=== PATIENT | female | born 1950 | race Caucasian/White ===

== ENCOUNTER 2020-05-27 07:00 | Outpatient (CLI) | payer MEDICARE, OTHER ==
--- NOTE | 2020-05-27 14:07 | XRAY Report ---
PROCEDURE: Hand 3 View LT INDICATIONS: SPRAIN OF METACARPOPHALANGEAL JOINT OF LEFT THUMB TECHNIQUE: 3 views of the hand(s) acquired. COMPARISON: None FINDINGS: Bones: No fractures or dislocations. No suspicious bony lesions. Soft tissues: No suspicious soft tissue calcifications. IMPRESSION: No acute fracture. No osseous lesion. If symptoms and/or clinical suspicion for pathology continue, f urther assessment with repeat plain films, or advanced imaging (e.g., CT, MRI, or bone scan) is recom mended for further assessment. Reviewed by: Brenna Gomez MD on 05/27/2020 2:06 PM PST Approved by: Brenna Gomez MD on 05/27/2020 2:06 PM PST Station ID: [id number]
== END 2020-05-27 23:59 | disposition home or self-care (01) ==
LOC: DI.S 07:00
PROVIDERS: ATTEND Emergency Medicine
DX: S63.642A Sprain of metacarpophalangeal joint of left thumb, initial encounter (principal)

== ENCOUNTER 2020-10-26 08:00 | Outpatient (CLI) | payer MEDICARE, OTHER | END 2020-10-26 23:59 | disposition home or self-care (01) | LOC: LAB.S 08:00 | PROVIDERS: ATTEND Physician Assistant Medical | DX: N39.0 Urinary tract infection, site not specified (principal) | CPT/HCPCS: 87086 ==

== ENCOUNTER 2020-12-07 08:00 | Outpatient (CLI) | payer MEDICARE, OTHER | END 2020-12-07 23:59 | disposition home or self-care (01) | LOC: LAB.S 08:00 | PROVIDERS: ATTEND Physician Assistant Medical | DX: R30.0 Dysuria (principal) | CPT/HCPCS: 87086; 87181 ==

== ENCOUNTER 2021-02-23 08:00 | Outpatient (CLI) | payer MEDICARE, OTHER | END 2021-02-23 23:59 | disposition home or self-care (01) | LOC: LAB.R 08:00 | PROVIDERS: ATTEND Physician Assistant Medical | DX: R30.0 Dysuria (principal) | CPT/HCPCS: 87086 ==

== ENCOUNTER 2021-03-12 08:19 | Outpatient (CLI) | payer MEDICARE, OTHER | END 2021-03-12 08:20 | disposition home or self-care (01) | LOC: LAB.S 08:19 | PROVIDERS: ATTEND Family Medicine | DX: Z00.00 Encounter for general adult medical examination without abnormal findings (principal); Z53.9 Procedure and treatment not carried out, unspecified reason | CPT/HCPCS: 36415; 80053; 80061; 83036; 83721; 84443; 85027 ==

== ENCOUNTER 2021-03-15 08:51 | Outpatient (CLI) | payer MEDICARE, OTHER ==
[2021-03-15 14:53] LABS: HCT - HEMATOCRIT 42.5 % (37.0-47.0); HGB - HEMOGLOBIN 13.6 g/dL (12.0-16.0); MEAN CORPUSCULAR HEMOGLOBIN 28.5 pg (27.0-31.0); MEAN CORPUSCULAR VOLUME 88.9 fL (81.0-99.0); RED BLOOD COUNT 4.78 10^6/uL (4.20-5.40); WHITE BLOOD COUNT 6.3 x10^3/uL (4.8-10.8)
[2021-03-15 15:14] LABS: ALBUMIN 4.2 g/dL (3.2-5.5); ALBUMIN/GLOBULIN RATIO 1.4 (1.0-2.2); ALKALINE PHOSPHATASE 77 IU/L (42-121); ALT ALANINE AMINOTRANSFERASE 18 IU/L (10-60); AST ASPARTATE AMINOTRANSFERASE 20 IU/L (10-42); BUN - BLOOD UREA NITROGEN 14 mg/dL (6-20); CALCIUM 9.1 mg/dL (8.5-10.3); CARBON DIOXIDE - CO2 25 mmol/L (21-32); CHLORIDE 103 mmol/L (101-111); CHOL/HDL RATIO 4.3 (<4.4); CHOLESTEROL 249 mg/dL; CREATININE 0.8 mg/dL (0.4-1.0); GFR - MDRD 71 (>89); GLUCOSE 109 mg/dL (70-100); HDL CHOLESTEROL 58 mg/dL; LDL CHOLESTEROL,CALCULATED 124 mg/dL; LDL/HDL RATIO 2.1 (<4.4); POTASSIUM 4.3 mmol/L (3.5-5.0); SODIUM 138 mmol/L (135-145); TOTAL PROTEIN 7.1 g/dL (6.7-8.2); TRIGLYCERIDES 333 mg/dL; VLDL CHOLESTEROL 67 mg/dL
[2021-03-15 15:26] LABS: THYROID STIMULATING HORMONE 1.8 uIU/mL (0.34-5.60)
[2021-03-15 20:05] LABS: ESTIMATED AVERAGE GLUCOSE 117 mg/dL (70-100); HEMOGLOBIN A1c% 5.7 % (4.27-6.07)
== END 2021-03-15 08:52 | disposition home or self-care (01) ==
LOC: LAB.S 08:51
PROVIDERS: ATTEND Family Medicine
DX: F33.41 Major depressive disorder, recurrent, in partial remission (principal); Z87.19 Personal history of other diseases of the digestive system; Z79.899 Other long term (current) drug therapy; E66.9 Obesity, unspecified; R73.9 Hyperglycemia, unspecified; E78.49 Other hyperlipidemia
CPT/HCPCS: 36415; 80053; 80061; 83036; 83721; 84443; 85027

== ENCOUNTER 2021-03-17 13:45 | Outpatient (CLI) | payer MEDICARE, OTHER | END 2021-03-17 23:59 | disposition home or self-care (01) | LOC: LAB.S 13:45 | PROVIDERS: ATTEND Physician Assistant Medical | DX: N30.90 Cystitis, unspecified without hematuria (principal) | CPT/HCPCS: 87086 ==

== ENCOUNTER 2021-05-05 13:50 | Outpatient (CLI) | payer MEDICARE, OTHER | END 2021-05-05 23:59 | disposition home or self-care (01) | LOC: LAB.S 13:50 | PROVIDERS: ATTEND Family Medicine | DX: R30.0 Dysuria (principal); M54.50 Low back pain, unspecified | CPT/HCPCS: 87086 ==

== ENCOUNTER 2021-06-21 06:37 | Outpatient (CLI) | payer MEDICARE, OTHER | END 2021-06-21 06:38 | disposition short-term general hospital (02) | LOC: EMS 06:37 | DX: M79.10 Myalgia, unspecified site (principal); R68.83 Chills (without fever); R06.02 Shortness of breath; R07.9 Chest pain, unspecified | CPT/HCPCS: A0425; A0427 ==

== ENCOUNTER 2021-08-23 08:00 | Outpatient (CLI) | payer MEDICARE, OTHER ==
--- NOTE | 2021-08-24 08:42 | XRAY Report ---
PROCEDURE: Shoulder 3 View LT INDICATIONS: LEFT SHOULDER PAIN TECHNIQUE: 3 views of the shoulder were acquired. COMPARISON: None. FINDINGS: BONES: No acute, displaced fracture. The joint spaces are maintained. SOFT TISSUES: No focal abnormality or appreciable pneumothorax. IMPRESSION: 1.No acute osseous abnormality. Reviewed by: Jesus Mckeon MD on 08/24/2021 8:40 AM [facility] Approved by: Jesus Mckeon MD on 08/24/2021 8:40 AM [facility] Station ID: [id number]
== END 2021-08-23 23:59 | disposition home or self-care (01) ==
LOC: DI.S 08:00
PROVIDERS: ATTEND Emergency Medicine
DX: M75.22 Bicipital tendinitis, left shoulder (principal)

== ENCOUNTER 2022-06-28 14:12 | Outpatient (CLI) | payer MEDICARE, OTHER ==
[2022-06-28 21:08] LABS: CALCIUM 9.3 mg/dL (8.5-10.3); MAGNESIUM 1.9 mg/dL (1.7-2.8); POTASSIUM 3.6 mmol/L (3.5-5.0)
== END 2022-06-28 14:13 | disposition home or self-care (01) ==
LOC: LAB.S 14:12
PROVIDERS: ATTEND Internal Medicine
DX: I51.89 Other ill-defined heart diseases (principal)
CPT/HCPCS: 36415; 80048; 83735

== ENCOUNTER 2023-11-05 14:03 | Outpatient (CLI) | payer MEDICARE, OTHER | END 2023-11-05 23:59 | disposition short-term general hospital (02) | LOC: EMS 14:03 | DX: R00.2 Palpitations (principal); R06.02 Shortness of breath | CPT/HCPCS: A0425; A0429 ==

== ENCOUNTER 2023-12-12 07:00 | Outpatient (CLI) | payer MEDICARE, OTHER | END 2023-12-12 23:59 | disposition home or self-care (01) | LOC: LAB.S 07:00 | PROVIDERS: ATTEND Registered Nurse | DX: R10.9 Unspecified abdominal pain (principal); S76.011A Strain of muscle, fascia and tendon of right hip, initial encounter | CPT/HCPCS: 36415; 80053; 83690; 85025; 86140; 87086 ==

== ENCOUNTER 2023-12-12 11:14 | Outpatient (CLI) | payer MEDICARE, OTHER ==
[2023-12-12 15:24] LABS: BASOPHILS % (AUTO) 0.3 %; EOSINOPHILS # (AUTO) 0.1 10^3/uL (0.0-0.7); EOSINOPHILS % (AUTO) 1.6 %; HCT - HEMATOCRIT 39.4 % (37.0-47.0); HGB - HEMOGLOBIN 12.4 g/dL (12.0-16.0); LYMPHOCYTES # (AUTO) 1.5 10^3/uL (1.5-3.5); LYMPHOCYTES % (AUTO) 17.8 %; MEAN CORPUSCULAR HEMOGLOBIN 27.9 pg (27.0-31.0); MEAN CORPUSCULAR HGB CONC 31.5 g/dL (32.0-36.0); MEAN CORPUSCULAR VOLUME 88.5 fL (81.0-99.0); MEAN PLATELET VOLUME 10.1 fL (7.9-10.8); MONOCYTES # (AUTO) 0.5 10^3/uL (0.0-1.0); MONOCYTES % (AUTO) 5.8 %; NEUTROPHILS # (AUTO) 6.4 10^3/uL (1.5-6.6); NEUTROPHILS % (AUTO) 74.3 %; PLT - PLATELET COUNT 255 10^3/uL (130-450); RED BLOOD COUNT 4.45 10^6/uL (4.20-5.40); RED CELL DISTRIBUTION WIDTH 13.5 % (12.0-15.0); WHITE BLOOD COUNT 8.6 x10^3/uL (4.8-10.8)
[2023-12-12 16:02] LABS: ALBUMIN 4.1 g/dL (3.2-5.5); ALKALINE PHOSPHATASE 116 IU/L (42-121); ALT ALANINE AMINOTRANSFERASE 19 IU/L (10-60); AST ASPARTATE AMINOTRANSFERASE 17 IU/L (10-42); BILIRUBIN,TOTAL 0.9 mg/dL (0.2-1.0); BUN - BLOOD UREA NITROGEN 13 mg/dL (6-20); CALCIUM 9.1 mg/dL (8.5-10.3); CARBON DIOXIDE - CO2 29 mmol/L (21-32); CHLORIDE 106 mmol/L (101-111); CREATININE 0.7 mg/dL (0.6-1.3); CRP - C-REACTIVE PROTEIN < 0.5 mg/dL (<0.5); GFR - MDRD 82 (>89); GLUCOSE 114 mg/dL (74-104); LIPASE 21 U/L (11-82); POTASSIUM 4.1 mmol/L (3.5-4.5); SODIUM 140 mmol/L (135-145); TOTAL PROTEIN 6.2 g/dL (6.4-8.9)
== END 2023-12-12 11:15 | disposition home or self-care (01) ==
LOC: LAB.S 11:14
PROVIDERS: ATTEND Registered Nurse
DX: R10.9 Unspecified abdominal pain (principal); S76.011A Strain of muscle, fascia and tendon of right hip, initial encounter
CPT/HCPCS: 36415; 80053; 83690; 85025; 86140